=== PATIENT | male | born 1935 | race Caucasian/White ===

== ENCOUNTER 2020-12-06 20:03 | Emergency (ER) | payer MEDICARE, OTHER ==
[~2020-12-06] VITALS: Ht 170.2 cm; Wt 75.3 kg
--- NOTE | 2020-12-06 22:12 | NUR ---
ASHLEY ([facility]) [phone]
[2020-12-06] MEDS ORDERED: IBUP-1955 PO (22:52)
[2020-12-06] MEDS ORDERED: SULF1TAB48 PO (22:52)
[2020-12-06] MEDS ORDERED: CEPH500C2 PO (22:52)
--- NOTE | 2020-12-06 23:24 | NUR ---
Patient discharged to home in stable condition. Written and verbal after care instructions given. Patient verbalizes understanding of instruction.
[2020-12-06 23:25] VITALS: BP 165/87
== END 2020-12-06 23:25 | disposition home or self-care (01) ==
LOC: ER 20:10
DX: L03.113 Cellulitis of right upper limb (principal); I10 Essential (primary) hypertension; K21.9 Gastro-esophageal reflux disease without esophagitis; Z88.0 Allergy status to penicillin

== ENCOUNTER 2021-12-09 20:35 | Emergency (ER) | payer MEDICARE, OTHER ==
[~2021-12-09] VITALS: Ht 167.6 cm; Wt 72.6 kg
[~2021-12-09 20:35] MED LIST: CEPH500C2 PO; IBUP-1955 PO; SULF1TAB48 PO
[2021-12-09] MEDS ORDERED: DOXY-226 PO (22:13)
--- NOTE | 2021-12-09 22:24 | NUR ---
Patient discharged to home in stable condition. Written and verbal after care instructions given. Patient verbalizes understanding of instruction.
[2021-12-09 22:25] VITALS: BP 140/98
[2021-12-09] MEDS ORDERED: DOXYCYCLINE HYCLATE (100 MG) 100 MG TABLET PO ONE (22:30)
== END 2021-12-09 22:26 | disposition home or self-care (01) ==
LOC: ER 20:42
DX: L03.114 Cellulitis of left upper limb (principal); I10 Essential (primary) hypertension; K21.9 Gastro-esophageal reflux disease without esophagitis; Z88.0 Allergy status to penicillin; Z91.018 Allergy to other foods; Z79.899 Other long term (current) drug therapy